=== PATIENT | female | born 1955 | race Two or more races ===

== ENCOUNTER 2018-03-31 05:05 | Inpatient (IN) | payer OTHER ==
[2018-03-31] VITALS (11 sets, daily range): BP systolic 109–143; BP diastolic 66–82
[~2018-03-31] VITALS: Ht 152.4 cm; Wt 90.7 kg
[2018-03-31] MEDS ORDERED: oxyCODONE HCL SR 10MG TAB.SR.12H PO ONE (05:47)
[2018-03-31] MEDS ORDERED: CELECOXIB 100 MG CAPSULE ONE (05:47)
[2018-03-31] MEDS ORDERED: ACETAMINOPHEN 325 MG TABLET ONE (05:48)
[2018-03-31] MEDS ORDERED: CEFAZOLIN SODIUM/DEXTROSE,ISO 50 ML IV ONE (05:48)
[2018-03-31] MEDS ORDERED: BACITRACIN 50000 UNITS/VIAL ONE (06:38)
[2018-03-31] MEDS ORDERED: MIDAZOLAM HCL 2 MG/2ML VIAL ONE (06:50)
[2018-03-31] MEDS ORDERED: FENTANYL PF 100MCG/2ML AMPUL ONE (06:50)
[2018-03-31] MEDS ORDERED: BUPIVACAINE MPF 0.5% W/EPI INJ 30 ML VIAL ONE (06:51)
[2018-03-31] MEDS ORDERED: MORPHINE SULFATE/PF 10 MG/10ML (1MG/ML) AMPUL ONE (06:51)
[2018-03-31] MEDS ORDERED: BUPIVACAINE 0.75% DEXT-PF 2 ML AMPUL ONE (06:51)
[2018-03-31] MEDS ORDERED: TRANEXAMIC ACID 3,000 MG in SODIUM CHLORIDE IRRIG SOLUTION 70 ML IR ONE (07:30)
[2018-03-31] MEDS ORDERED: HYDROMORPHONE 1 MG/1 ML DISP.SYRIN ONE (08:58)
[2018-03-31] MEDS ORDERED: *INSULIN REGULAR(HUMULIN R)HUM 100 UNIT/ML VIAL SQ PRN (11:00)
[2018-03-31] MEDS ORDERED: DEXTROSE 50%-WATER 50 ML DISP.SYRIN IV PRN (11:00)
--- NOTE | 2018-03-31 11:04 | NUR ---
MS RN ADMITTING NOTES PATIENT ADMITTED TO UNIT VIA BED S/P RIGHT KNEE TOTAL ARTHROPLASTY BY DEV RAMESH ACCOMPANIED BY OR NURSE WANDA AND PT'S FAMILY. PT IS ALERT BUT LETHARGIC, FOLLOWS COMMANDS AND ON 02 VIA N/C @ 2LPM AT THIS TIME, BREATHING EVEN AND UNLABORED. PT AND FAMILY ORIENTED TO UNIT AND ROOM. V/S CHECKED AND RECORDED. HEAD TO TOE ASSESSMENT DONE. PT WITH RIGHT KNEE (LOWER EXTREMITY) DRESSING WRAPPED WITH JENNYFER BANDAGE CLEAN, DRY AND INTACT. RIGHT KNEE IMMOBILIZER IN PLACE. PT WITH CLEAR LUNGS BILATERALLY ON AUSCULTATION. ABDOMEN SOFT AND NON-TENDED WITH HYPOACTIVE BOWEL SOUNDS. IV ACCESS ON RIGHT WRIST G#18 INTACT AND PATENT, FLUSHES WELL. SAFETY MEASURES INITIATED, BED PLACED ON LOW LOCKED POSITION WITH SIDE-RAILS UP X2. CALL LIGHT PLACED WITHIN REACH. WILL CONTINUE TO MONITOR PT ACCORDINGLY. Addendum: 03/31/18 at 1428 by KIMANI COUGHLIN RN ADDENDUM: PATIENT WITH MORENO CATHETER FR #[address] AND PATENT, DRAINING YELLOW CLOUDY URINE TO BEDSIDE URINARY BAG. WILL CONTINUE TO MONITOR.
[2018-03-31] MEDS ORDERED: CLONIDINE HCL 0.1 MG TABLET PO PRN (11:30)
[2018-03-31] MEDS ORDERED: MAG HYDROX/AL HYDROX/SIMETH 30 ML UDC PO PRN (11:30)
[2018-03-31] MEDS ORDERED: ACETAMINOPHEN 325 MG TABLET PO PRN (11:30)
[2018-03-31] MEDS ORDERED: oxyCODONE IR immediate release 5 MG PO PRN (11:30)
[2018-03-31] MEDS ORDERED: SENNOSIDES 8.6 MG TABLET PO PRN (11:30)
[2018-03-31] MEDS ORDERED: MENTHOL/CETYLPYRD (CEPACOL) 1 LOZ LOZENGE PO PRN (11:30)
[2018-03-31] MEDS ORDERED: ZOLPIDEM TARTRATE 5 MG TABLET PO PRN (11:30)
[2018-03-31] MEDS ORDERED: DOCUSATE SODIUM 250 MG CAPSULE PO PRN (11:30)
[2018-03-31] MEDS ORDERED: diphenhydrAMINE HCL 25 MG CAPSULE PO PRN (11:30)
[2018-03-31] MEDS ORDERED: CHOL100044 PO (11:36)
[2018-03-31] MEDS ORDERED: METF500T7 PO (11:36)
[2018-03-31] MEDS ORDERED: SIMV20TA6 PO (11:36)
[2018-03-31] MEDS ORDERED: METO25TA3 PO (11:36)
[2018-03-31] MEDS ORDERED: FLUT16SP NS (11:38)
[2018-03-31] MEDS ORDERED: ALBU18HF2 IH (11:38)
[2018-03-31] MEDS: HYDROMORPHONE 1 MG/1 ML DISP.SYRIN IV PRN ×3 (11:39→20:54)
--- NOTE | 2018-03-31 11:42 | NUR ---
RN NOTES/PAIN MANAGEMENT PATIENT NOTED GRIMACING AND MOANING WITH C/O PAIN ON HER RIGHT OPERATIVE KNEE. PRN DILAUDID 0.5MG IVP ADMINISTERED AT 1139. WILL CONTINUE TO MONITOR AND REASSESS.
[2018-03-31] MEDS: IV LR 1000 ML 1,000 ML IV PRN (11:54)
[2018-03-31] MEDS: INSULIN REGULAR, HUMAN 100 UNIT/ML 3 ML VIAL SQ PRN ×2 (11:59→17:15)
[2018-03-31] MEDS: BLOOD SUGAR DIAGNOSTIC 1 EACH STRIP VI SCH ×3 (11:59→21:05)
[2018-03-31] MEDS ORDERED: PANT40TA2 PO (12:32)
[2018-03-31] MEDS ORDERED: HYDR25TA4 PO (12:32)
[2018-03-31] MEDS: ONDANSETRON HCL/PF 4 MG/2 ML VIAL IV PRN ×2 (12:43→17:50)
--- NOTE | 2018-03-31 12:45 | NUR ---
RN NOTES PATIENT C/O OF NAUSEA AND TRIED TO VOMIT BUT NO EMESIS, PRN ZOFRAN 4MG IVP ADMINISTERED AT 1243 ORDERED. WILL CONTINUE TO MONITOR AND REASSESS.
--- NOTE | 2018-03-31 14:29 | NUR ---
RN NOTES PATIENT STATED THAT SHE USES EYEGLASSES, CHECKED PT'S BELONGINGS LIST BUT NOTHING LISTED, SAME CHECKED PT'S BELONGINGS AT BEDSIDE BUT NOTHING THERE. EXPLAINED TO PT AND VERBALIZED UNDERSTANDING.
[2018-03-31] MEDS ORDERED: FLUTICASONE PROPIONATE 16 GM BOTTLE NS PRN (15:30)
[2018-03-31] MEDS: ANCEF 1 GM/50 ML D5W IV SCH ×2 (15:51)
--- NOTE | 2018-03-31 16:07 | NUR ---
RN NOTES/PAIN MANAGEMENT PATIENT NOTED GRIMACING AND C/O PAIN ON HER RIGHT OPERATIVE KNEE WITH SCALE OF 8/10. PRN DILAUDID 0.5MG IVP ADMINISTERED AT 1606. WILL CONTINUE TO MONITOR AND REASSESS.
[2018-03-31] MEDS: METFORMIN XR 500 MG TAB.SR.24H PO SCH (16:09)
--- NOTE | 2018-03-31 17:53 | NUR ---
RN NOTES PATIENT VOMITED ABOUT 75 ML OF FLUIDS AND UNDIGESTED FOOD ATE AT DINNER, PRN ZOFRAN 4MG IVP ADMINISTERED AT 1750 ORDERED. WILL CONTINUE TO MONITOR AND REASSESS.
--- NOTE | 2018-03-31 18:53 | NUR ---
MS RN CLOSING NOTES PATIENT IN BED ASLEEP AT THIS TIME, EASILY AWAKENS. HOB ELEVATED. PT IS A/O X4, SAME ABLE TO MAKE NEEDS KNOWN. ON ROOM AIR, BREATHING EVEN AND UN LABORED. PT WITH CPM MACHINE AT 35 DEGREES AT THIS TIME. IVF OF LR INFUSING @ 75ML/HR TO RIGHT WRIST, NO S/S OF INFILTRATIONS NOTED. MORENO CATH IN PLACE, DRAINING CLOUDY YELLOW URINE VIA GRAVITY, MORENO CARE DONE. MORENO CATHETER TO BE REMOVED TOMORROW 04/01/2018 1ST DAY POST SURGERY PER MD ORDER. ALL NEEDS AND CARE ATTENDED WELL. ALL SAFETY MEASURES KEPT IN PLACE. BED IN LOW LOCKED POSITION WITH SIDE-RAILS UP X2. CALL LIGHT IN REACH. ALL NEEDS AND CARE ATTENDED WELL. WILL ENDORSE TO TRAFFIC COURT REFEREE NURSE FOR KEVIN.
--- NOTE | 2018-03-31 19:00 | NUR ---
MS RN NOTES RECEIVE PT IN BED A/O X 3, NO PAIN AT THIS TIME. IN STABLE CONDITION, NOT IN DISTRESS, SAFETY MEASURES IN PLACE. WILL CONTINUE TO MONITOR.
[2018-03-31] MEDS ORDERED: ALBUTEROL FS 2.5 MG/3 ML VIAL.NEB NEB PRN (19:30)
--- NOTE | 2018-03-31 20:00 | NUR ---
MS SPANGLER NOTES PPD reading with induration of less than 5 millimeters (mm) negative test in the L forearm Addendum: 04/01/18 at 0614 by CLARI MATTHEWS RN MISTAKEN ENTRY: DISREGARD THIS ENTRY THIS IS FOR DIFFRENT PATIENT
[2018-03-31] MEDS: FAMOTIDINE (20 MG) 20 MG TABLET PO SCH (21:10)
[2018-04-01] MEDS: ANCEF 1 GM/50 ML D5W IV SCH ×2 (00:07)
[2018-04-01] MEDS: HYDROMORPHONE 1 MG/1 ML DISP.SYRIN IV PRN ×6 (01:22→20:20)
[2018-04-01] MEDS: IV LR 1000 ML 1,000 ML IV PRN ×2 (02:34→21:52)
[2018-04-01] MEDS: BLOOD SUGAR DIAGNOSTIC 1 EACH STRIP VI SCH ×4 (05:51→21:51)
[2018-04-01] MEDS: INSULIN REGULAR, HUMAN 100 UNIT/ML 3 ML VIAL SQ PRN ×3 (05:52→16:25)
--- NOTE | 2018-04-01 06:13 | NUR ---
MS RN CLOSING NOTES REMAINS STABLE. ALL NURSING CARE RENDERED. KEPT CLEAN AND DRY AND COMFORTABLE, NEEDS ATTENDED AND ANTICIPATED. ON LOW BED AT ALL TIMES TO ENSURE SAFETY. SAFE HAZARD FREE ENVIRONMENT PROVIDED. CALL LIGHT WITHIN EASY TO REACH. WILL ENDORSE NEXT SHIFT CONTINUITY OF CAR
[2018-04-01 06:38] LABS: HEMOGLOBIN 10.7 g/dL (11.5-14.8)
[2018-04-01 08:00] VITALS: BP 139/74
[2018-04-01] MEDS: METFORMIN XR 500 MG TAB.SR.24H PO SCH ×2 (09:00→16:28)
[2018-04-01] MEDS: ASPIRIN 325 MG TABLET PO SCH (09:00)
[2018-04-01] MEDS: SIMVASTATIN 20 MG TABLET PO SCH (09:00)
[2018-04-01] MEDS: CHOLECALCIFEROL 1,000 UNIT TABLET (VIT D3) PO SCH (09:00)
[2018-04-01] MEDS: FAMOTIDINE (20 MG) 20 MG TABLET PO SCH ×2 (09:01→20:19)
[2018-04-01] MEDS: HYDROCHLOROTHIAZIDE 25 MG TABLET PO SCH (09:01)
[2018-04-01] MEDS: METOPROLOL SUCCINATE 25 MG TAB.SR.24H PO SCH (09:02)
[2018-04-01] MEDS: PANTOPRAZOLE 40 MG TABLET.DR PO SCH (09:04)
--- NOTE | 2018-04-01 09:05 | NUR ---
MS RN INITIAL NOTES Patient is awake, stable on RA, denies SOB. RLE dressing intact, knee immobilizer in place. Urinary stuart cath to be removed today, post op day 1. Maintained safety, will cont to monitor.
[2018-04-01] MEDS: oxyCODONE IR immediate release 5 MG PO PRN ×2 (11:00→16:28)
--- NOTE | 2018-04-01 11:03 | NUR ---
Patient ambulates with PT today, urinary stuart cath removed, obtained 400ml urine. Will monitor for urinary retention.
[2018-04-01] MEDS: ONDANSETRON HCL/PF 4 MG/2 ML VIAL IV PRN (12:26)
--- NOTE | 2018-04-01 12:35 | NUR ---
Patient has voided without difficulty, post urinary stuart cath.d/c'd. will cont to monitor.
[2018-04-01 16:00] VITALS: BP 133/70
--- NOTE | 2018-04-01 18:08 | NUR ---
MS RN CLOSING NOTES Patient ambulates with PT today, right knee pain managed by PO Oxy IR + IV Dilaudid. Urinary stuart cath was removed with no s/s of urinary retention post discontinued. Poor appetite, episode of nausea, on PRN Zofran-nausea resolved. IVF infusing, maintained at 75ml/hr. WBAT RLE ortho, tolerated CPM machine. BSC, assisted with transfer x 1 assist/ walker. Maintained safety, will endorse to oncoming RN.
--- NOTE | 2018-04-01 19:00 | NUR ---
RN MS OPENING NOTES RECEIVED PATIENT IN BED AWAKE ALERT AND ORIENTED X4, RESPIRATIONS EVEN AND UNLABORED WITH EQUAL RISE AND FALL OF CHEST, DENIES ANY FEELING OF SOB OR RESPIRATORY DISTRESS, ABLE TO MAKE NEEDS KNOWN, PATIENT OFFERED CPM MACHINE AT THIS TIME, PATIENT DOES NOT WANT IT ON, STATES "MAYBE LATER, SHE DID IT EARLIER TODAY", EDUCATED ON BENEFIT OF CPM WILL CONTINUE TO ENCOURAGE. BEDSIDE COMMODE AT BEDSIDE AND OFFERED, WILL FOLLOW UP WHEN PATIENT REQUEST TO USE AND ASSIST. RIGHT FA IV SITE #18 INTACT AND PATENT, NO REDNESS, NO INFILTRATION , IVF RUNNING ORDERED. SAFETY PRECAUTION IN PLACE, LOW BED AND LOCKED, CALL LIGHT KEPT WITHIN REACH AND ORIENTED TO STAFF AND CALL LIGHT, RIGHT LEG WITH DRESSING JENNYFER BANDAGE INTACT AND BRACE INTACT CLEAN DRY AND INTACT, ALL NEEDS ATTENDED AT THIS TIME, WILL CONTINUE TO MONITOR.
[2018-04-01 20:00] VITALS: BP 137/82
--- NOTE | 2018-04-01 20:20 | NUR ---
RN MS NOTES PATIENT COMPLAINT OF PAIN TO RIGHT LEG 11/25, REQUESTING FOR PAIN MEDICATION DILAUDID OFFERED BASED ON PAIN SCALE, PATIENT AGREED VITAL SIGNS WNL 137/82,HR 96,RESP 18,TEMP 98.6, O2SAT 98% RA DILAUDID 0.5ML GIVEN ORDERED 0.5ML WASTED WITH WITNESS. WILL MONITOR FOR EFFECTIVENESS.
[2018-04-02] MEDS: HYDROMORPHONE 1 MG/1 ML DISP.SYRIN IV PRN ×3 (00:07→10:03)
--- NOTE | 2018-04-02 00:37 | NUR ---
RN MS NOTES PATIENT COMPLAINT OF PAIN 12/26 TO RIGHT LEG REQUESTING FOR PAIN MEDICATION. VITAL SIGNS TAKEN B/P 152/81,HR 97,RESP18, 02 SAT RA 93-94% NO RESPIRATORY DISTRESS PRESENT, DENIES ANY FEELING OF SOB DILAUDID PRN 0.5ML GIVEN ORDERED AND 0.5ML WASTED WITH ANOTHER RN. WILL CONTINUE TO MONITOR FOR EFFECTIVENESS Addendum: 04/02/18 at 0052 by LUCA SILVER RN CLARIFICATION OF TIME MED GIVEN AT 0007.
--- NOTE | 2018-04-02 06:02 | NUR ---
RN MS NOTES PATIENT COMPLAINT OF PAIN 9/10 TO RIGHT LEG REQUESTING FOR PAIN MEDICATION. VITAL SIGNS TAKEN SPO2 RA AT 94%, 140/79, HR 96, RESP 18. DILAUDID PRN OFFERED PATIENT AGREED DILAUDID 0.5ML GIVEN ORDERED 0.5ML WASTED WITH ANOTHER RN WILL CONTINUE TO MONITOR FOR EFFECTIVENESS, CALL LIGHT KEPT WITHIN REACH
[2018-04-02] MEDS: BLOOD SUGAR DIAGNOSTIC 1 EACH STRIP VI SCH ×3 (06:22→17:18)
[2018-04-02] MEDS: INSULIN REGULAR, HUMAN 100 UNIT/ML 3 ML VIAL SQ PRN (06:30)
--- NOTE | 2018-04-02 06:35 | NUR ---
RN MS CLOSING NOTES PATIENT IN BED AWAKE ALERT AND ORIENTED X4, RESPIRATIONS EVEN AND UNLABORED WITH EQUAL RISE AND FALL OF CHEST, DENIES ANY FEELING OF SOB OR RESPIRATORY DISTRESS, ABLE TO MAKE NEEDS KNOWN, BEDSIDE COMMODE AT BEDSIDE AND OFFERED THROUGHOUT SHIFT WITH ASSIST, NO URINARY RETENTION ABLE TO VOID WITHOUT DIFFICULTY PATIENT WAS REQUESTING TO REMOVE IMMOBILIZER MADE AWARE OF IMPORTANCE TO HAVE IT ON, LEFT FA IV SITE #22 INTACT AND PATENT, NO REDNESS, NO INFILTRATION , IVF RUNNING ORDERED. PREVIOUS RIGHT SIDE IV SITE REMOVED DUE TO DISLODGED,SAFETY PRECAUTIONS IN PLACE, LOW BED AND LOCKED, CALL LIGHT KEPT WITHIN REACH AND RIGHT LEG WITH DRESSING JENNYFER BANDAGE INTACT AND BRACE INTACT CLEAN DRY AND INTACT, ALL NEEDS ATTENDED AT THIS TIME, WILL CONTINUE TO MONITOR AND ENDORSE TO NEXT SHIFT.
[2018-04-02 08:00] VITALS: BP 148/75
--- NOTE | 2018-04-02 08:00 | NUR ---
RN NOTES RECEIVED PATIENT IN THE BED, A/O X3/4. ASSIST USING BEDSIDE COMMODE, PATIENT HAS RIGHT KNEE SURGERY, LONG BRACE ON, KEEP ELEVATED BY PILLOW. SCHEDULED MEDICATION ADMINISTERED. PATIENT REFUSED PAIN AT THIS TIME, LUNGS ARE CLEAR, UNLABORED. ASSIST TURN AND REPOSTION Q [address] OROZCO, PER ELECTRONICS DETAIL DRAFTSPERSON D/C PATIENT TO SNF OR HOME AFTER CLEARING BY SURGEON. V/S STABLE. SAFETY PRECAUTION MAINTAINED ALL THE TIME. IV ACCESS ON LEFT FA LR AT 75 ML/HR INTACT.
[2018-04-02] MEDS: SIMVASTATIN 20 MG TABLET PO SCH (08:01)
[2018-04-02] MEDS: CHOLECALCIFEROL 1,000 UNIT TABLET (VIT D3) PO SCH (08:01)
[2018-04-02] MEDS: METOPROLOL SUCCINATE 25 MG TAB.SR.24H PO SCH (08:04)
[2018-04-02] MEDS: METFORMIN XR 500 MG TAB.SR.24H PO SCH ×2 (08:04→17:17)
[2018-04-02] MEDS: ASPIRIN 325 MG TABLET PO SCH (08:05)
[2018-04-02] MEDS: FAMOTIDINE (20 MG) 20 MG TABLET PO SCH (08:05)
[2018-04-02] MEDS: HYDROCHLOROTHIAZIDE 25 MG TABLET PO SCH (08:05)
[2018-04-02] MEDS: PANTOPRAZOLE 40 MG TABLET.DR PO SCH (08:05)
[2018-04-02] MEDS ORDERED: ASPI-992 PO (09:44)
--- NOTE | 2018-04-02 10:03 | NUR ---
rn notes administered Dilaudid 0.5 mg/ml iv push for right knee pain 01/25 per patient request, v/s taken bp 134/78, p-78, continued monitoring.
--- NOTE | 2018-04-02 12:12 | NUR ---
ANÍBAL MERRILL BS-136 MG/DL PATIENT REFUSED COVERAGE. PER PATIENT SHE DOES NOT LIKE INSULIN, EXPLAINED PROTOCOL IN HOSPITAL, PATENT VERBALIZED UNDERSTANDING, BUT STILL REFUSED. CPM MACHINE ON, MEDICATION WERE ADMINISTERED FOR PAIN EFFECTIVE. CALL LIGHT WITHIN TO REACH. PATIENT EATING. CONTINUED MONITORING FOR SAFETY.
--- NOTE | 2018-04-02 12:50 | NUR ---
RN NOTES ASSIST PATIENT TO GET OUT OF BED SEATING IN THE CHAIR. CALL LIGHT NEAR TO REACH. CONTINUED MONITORING.
[2018-04-02] MEDS: ONDANSETRON HCL/PF 4 MG/2 ML VIAL IV PRN (13:06)
--- NOTE | 2018-04-02 13:06 | NUR ---
RN NOTES ADMINISTERED ZOFRAN 4 MG/ML IV PUSH FOR NAUSEA. CONTINUED MONITORING.
[2018-04-02 16:00] VITALS: BP 129/71
--- NOTE | 2018-04-02 17:00 | NUR ---
RN NOTES CALLED ONCALL [employer] CAR[employer] SPECIALIST SUPERVISOR QUAN NAGY REGARDING 1-ST DRESSING QURESHI BECAUSE PATIENT GOING HOME . PER AIR CARGO SPECIALIST SUPERVISOR PATIENT OK TO DISCHARGE HOME, AND DRESSING WII BE CHANGED ON DR PERAZA OFFICE. CHARGE NURSE AWARE OF.
--- NOTE | 2018-04-02 19:02 | NUR ---
DISCHARGE NOTES PATIENT DISCHARGE AT THIS TIME GOING HOME. PATIENT STABLE, V/S STABLE, BS-136 MG/DL. PATIENT REFUSED COVERAGE TO BE GIVEN. PATIENT REFUSED PAIN, V/S STABLE. PATIENT WILL FOLLOW DR MÉNDEZ. MED RECONCILIATION AND DISCHARGE ORDER REVIEWED AND EXPLAINED TO PATIENT, AND DAUGHTER NAME ANNALEE. DAUGHTER VERBALIZED UNDERSTANDING. ESCORTED PATIENT TO THE LOBBY FOR SAFETY. PATIENT SIGN PAPERWORK. PATIENT [employer]AT[employer] OPENER BY DAUGHTER NAME ANNALEE PHONE .
== END 2018-04-02 19:00 | disposition home or self-care (01) | DRG 302 ==
LOC: DS 05:05 → MED 11:05
PROVIDERS: ADMIT Specialist; ATTEND Internal Medicine
PROC: 0SRC0J9 Replacement of Right Knee Joint with Synthetic Substitute, Cemented, Open Approach (ICD-10-PCS; principal; 2018-03-31 08:00)
DX: M17.11 Unilateral primary osteoarthritis, right knee (principal); E66.01 Morbid (severe) obesity due to excess calories; E11.9 Type 2 diabetes mellitus without complications; D64.9 Anemia, unspecified; E78.00 Pure hypercholesterolemia, unspecified; E07.9 Disorder of thyroid, unspecified; E78.5 Hyperlipidemia, unspecified; I10 Essential (primary) hypertension; Z68.39 Body mass index [BMI] 39.0-39.9, adult; J45.909 Unspecified asthma, uncomplicated; Z87.442 Personal history of urinary calculi; M81.0 Age-related osteoporosis without current pathological fracture; K21.9 Gastro-esophageal reflux disease without esophagitis
CPT/HCPCS: 36415; 82962-TC; 85027-TC; 86850-TC; 86921-TC; 87081-TC; 88305-TC; 88311-TC; 97110-TC; 97116-TC; 97530-TC; 97760-TC; A4217; A6402; C1713; G0378; J0690; J1100; J1170; J1815; J1885; J2250; J2274; J2405; J2704; J3010; J3490; J7060; J7120; L1830; Z7610